=== PATIENT | male | born 1960 | race Caucasian/White ===

== ENCOUNTER 2024-09-28 06:32 | Emergency (ER) | payer MEDICARE ==
[~2024-09-28] VITALS: Ht 165.1 cm; Wt 102.1 kg
[2024-09-28 06:44] VITALS: PULSE 84; RESP 17; TEMP 97.7; O2SAT 98
[2024-09-28] MEDS: KETOROLAC TROMETHAMINE 30 MG/ML VIAL IM STA (07:16)
[2024-09-28] MEDS ORDERED: NAPROXEN250 MG PO (08:19)
== END 2024-09-28 08:29 | disposition home or self-care (01) ==
LOC: ER 06:42
DX: M25.512 Pain in left shoulder (principal); M75.32 Calcific tendinitis of left shoulder; X50.1XXA Overexertion from prolonged static or awkward postures, initial encounter; Y92.89 Other specified places as the place of occurrence of the external cause
CPT/HCPCS: 73030; 99283; J1885

== ENCOUNTER 2025-02-24 20:49 | Emergency (ER) | payer MEDICARE ==
[~2025-02-24] VITALS: Ht 167.6 cm; Wt 104.3 kg
[~2025-02-24 20:49] MED LIST: NAPROXEN250 MG PO
[2025-02-24 20:57] VITALS: RESP 20; TEMP 98.1
[2025-02-24] MEDS: KETOROLAC TROMETHAMINE 60 MG/2 ML VIAL IM STA (21:17)
[2025-02-24 22:00] VITALS: PULSE 78
[2025-02-24 22:16] VITALS: BP 151/104; O2SAT 96
== END 2025-02-24 22:05 | disposition home or self-care (01) ==
LOC: ER 21:07
DX: S00.81XA Abrasion of other part of head, initial encounter (principal); M25.512 Pain in left shoulder; W01.0XXA Fall on same level from slipping, tripping and stumbling without subsequent striking against object, initial encounter; Y93.01 Activity, walking, marching and hiking; Y92.89 Other specified places as the place of occurrence of the external cause; I10 Essential (primary) hypertension; I25.10 Atherosclerotic heart disease of native coronary artery without angina pectoris
CPT/HCPCS: 70450; 72125; 73030; 99283; J1885